=== PATIENT | female | born 1990 | race African-American/Black ===

== ENCOUNTER 2019-03-04 14:06 | Emergency (ER) | payer MEDICAID ==
[~2019-03-04] VITALS: Ht 167.6 cm; Wt 66.0 kg
[2019-03-04 14:34] VITALS: BP 115/79
== END 2019-03-04 17:09 | disposition home or self-care (01) ==
LOC: ER 14:06
DX: J02.9 Acute pharyngitis, unspecified (principal); R03.0 Elevated blood-pressure reading, without diagnosis of hypertension
CPT/HCPCS: 81025; 99283

== ENCOUNTER 2019-09-01 17:02 | Emergency (ER) | payer MEDICAID ==
[~2019-09-01] VITALS: Ht 167.6 cm; Wt 71.0 kg
[2019-09-01 19:14] VITALS: BP 115/88
== END 2019-09-01 19:16 | disposition home or self-care (01) ==
LOC: ER 17:32
DX: J02.0 Streptococcal pharyngitis (principal)
CPT/HCPCS: 87804; 99283

== ENCOUNTER 2020-12-10 16:28 | Emergency (ER) | payer MEDICAID ==
[~2020-12-10] VITALS: Ht 167.6 cm; Wt 73.0 kg
[2020-12-10 19:50] LABS: CLARITY URINE TURBID (CLEAR); COLOR URINE RED (YELLOW); KETONES URINE TRACE (NEGATIVE); LEUKOCYTE ESTERASE URINE 2+ (NEGATIVE); NITRITE URINE POSITIVE (NEGATIVE); OCCULT BLOOD URINE 2+ (NEGATIVE); PROTEIN URINE 2+ (NEGATIVE); SPECIFIC GRAVITY URINE 1.016 (1.005-1.030); UROBILINOGEN URINE 0.2 E.U./dL (0.2-1.0)
[2020-12-10] MEDS ORDERED: CEPH500C2 MT (21:36)
[2020-12-10 21:44] VITALS: BP 141/88
== END 2020-12-10 21:49 | disposition home or self-care (01) ==
LOC: ER 16:28
DX: R58 Hemorrhage, not elsewhere classified (principal); N39.0 Urinary tract infection, site not specified
CPT/HCPCS: 36415; 76830; 76856; 81003; 84702; 86850; 86900; 87491; 87591; 99284

== ENCOUNTER 2020-12-19 04:02 | Emergency (ER) | payer MEDICAID, OTHER ==
[~2020-12-19] VITALS: Ht 167.6 cm; Wt 71.0 kg
[~2020-12-19 04:02] MED LIST: CEPH500C2 MT
[2020-12-19 05:16] LABS: BASOPHILS % 0.3 % (0.0-2.0); EOSINOPHILS % 0.6 % (0.0-5.0); HEMATOCRIT. 38.8 % (36.0-48.0); LYMPHOCYTES % 27.7 % (20.0-50.0); MEAN CORPUSCULAR HEMOGLOBIN 30.4 pg (28.0-32.0); MEAN CORPUSCULAR VOLUME 90.8 fL (81.0-99.0); MEAN PLATELET VOLUME 8.8 fl (7.4-10.4); MONOCYTES % 9.1 % (2.0-8.0); NEUTROPHILS % 62.3 % (40.0-76.0); PLATELET 275 x1000/uL (130-400); RED BLOOD CELL COUNT 4.27 mill/uL (4.2-5.4); RED CELL DISTRIBUTION WIDTH 12.6 % (11.6-14.6)
[2020-12-19 05:23] LABS: CHLORIDE 101 mEq/L (98-107)
[2020-12-19] MEDS ORDERED: IBUP-2028 MT (07:23)
[2020-12-19] MEDS ORDERED: POTASSIUM CHLORIDE 20MEQ TABLET SR PO ONE (07:30)
[2020-12-19 07:48] VITALS: BP 118/68
== END 2020-12-19 07:57 | disposition home or self-care (01) ==
LOC: ER 04:02
DX: R07.89 Other chest pain (principal); E87.6 Hypokalemia
CPT/HCPCS: 36415; 71045; 80053; 83880; 84484; 85025; 93005; 99285

== ENCOUNTER 2021-02-05 13:55 | Emergency (ER) | payer MEDICAID, OTHER ==
[~2021-02-05] VITALS: Ht 167.6 cm; Wt 72.0 kg
[~2021-02-05 13:55] MED LIST changes: +IBUP-2028 MT
[2021-02-05 16:38] LABS: CLARITY URINE CLEAR (CLEAR); COLOR URINE YELLOW (YELLOW); KETONES URINE NEGATIVE (NEGATIVE); LEUKOCYTE ESTERASE URINE NEGATIVE (NEGATIVE); NITRITE URINE NEGATIVE (NEGATIVE); OCCULT BLOOD URINE NEGATIVE (NEGATIVE); PROTEIN URINE NEGATIVE (NEGATIVE); SPECIFIC GRAVITY URINE 1.005 (1.005-1.030); UROBILINOGEN URINE 0.2 E.U./dL (0.2-1.0)
[2021-02-05 16:47] LABS: BASOPHILS % 0.6 % (0.0-2.0); HEMATOCRIT. 37.5 % (36.0-48.0); HEMOGLOBIN. 13.1 g/dL (12.0-16.0); LYMPHOCYTES % 32.3 % (20.0-50.0); MEAN CORPUSCULAR HEMOGLOBIN 31.5 pg (28.0-32.0); MEAN CORPUSCULAR VOLUME 89.9 fL (81.0-99.0); MEAN PLATELET VOLUME 8.9 fl (7.4-10.4); NEUTROPHILS % 59.1 % (40.0-76.0); PLATELET 268 x1000/uL (130-400); RED BLOOD CELL COUNT 4.17 mill/uL (4.2-5.4); RED CELL DISTRIBUTION WIDTH 12.7 % (11.6-14.6)
[2021-02-05 16:51] LABS: CHLORIDE 106 mEq/L (98-107)
[2021-02-05 16:55] LABS: HCG SCREEN NEGATIVE; PROTHROMBIN TIME 10.3 sec (9.6-11.0)
[2021-02-05] MEDS ORDERED: KETOROLAC 60MG/2ML VIAL IM ONE (18:00)
[2021-02-05] MEDS ORDERED: IBUP-2029 MT (18:34)
[2021-02-05] MEDS ORDERED: OMEP20CA14 MT (18:34)
[2021-02-05 18:39] VITALS: BP 124/78
== END 2021-02-05 18:46 | disposition home or self-care (01) ==
LOC: ER 13:55
DX: R10.2 Pelvic and perineal pain (principal); D25.9 Leiomyoma of uterus, unspecified
CPT/HCPCS: 36415; 74176; 80053; 81003; 81025; 83690; 84703; 85025; 85610; 96372; 99284; J1885

== ENCOUNTER 2021-02-14 08:18 | Emergency (ER) | payer OTHER ==
[~2021-02-14] VITALS: Ht 167.6 cm; Wt 71.0 kg
[~2021-02-14 08:18] MED LIST changes: +IBUP-2029 MT; +OMEP20CA14 MT
[2021-02-14] MEDS ORDERED: ACETAMINOPHEN 325MG TABLET PO ONE (08:45)
[2021-02-14 10:10] LABS: BASOPHILS % 0.3 % (0.0-2.0); EOSINOPHILS % 0.6 % (0.0-5.0); HEMATOCRIT. 39.8 % (36.0-48.0); HEMOGLOBIN. 13.7 g/dL (12.0-16.0); LYMPHOCYTES % 18.9 % (20.0-50.0); MEAN CORPUSCULAR VOLUME 89.7 fL (81.0-99.0); MEAN PLATELET VOLUME 9.1 fl (7.4-10.4); MONOCYTES % 10.2 % (2.0-8.0); PLATELET 247 x1000/uL (130-400); RED BLOOD CELL COUNT 4.43 mill/uL (4.2-5.4); RED CELL DISTRIBUTION WIDTH 12.6 % (11.6-14.6)
[2021-02-14 10:20] LABS: CHLORIDE 102 mEq/L (98-107)
[2021-02-14] MEDS ORDERED: IBUP-2028 MT (11:12)
[2021-02-14 11:27] VITALS: BP 124/83
[2021-02-20] MEDS ORDERED: LEVO500T89 MT (13:47)
[2021-02-20] MEDS ORDERED: METR500T MT (13:47)
== END 2021-02-14 11:30 | disposition home or self-care (01) ==
LOC: ER 08:18
DX: R07.89 Other chest pain (principal); F17.200 Nicotine dependence, unspecified, uncomplicated
CPT/HCPCS: 36415; 71045; 80053; 81025; 85025; 85379; 93005; 93970; 99285

== ENCOUNTER 2021-02-17 01:03 | Emergency (ER) | payer OTHER ==
[~2021-02-17] VITALS: Ht 167.6 cm; Wt 71.0 kg
[2021-02-17] MEDS ORDERED: ONDANSETRON HCL 4MG/2ML INJ IV STA (04:19)
[2021-02-17] MEDS ORDERED: KETOROLAC 30MG/ML VIAL IV STA (04:19)
[2021-02-17 05:45] LABS: BASOPHILS % 0.3 % (0.0-2.0); EOSINOPHILS % 0.6 % (0.0-5.0); HEMOGLOBIN. 13.8 g/dL (12.0-16.0); LYMPHOCYTES % 24.8 % (20.0-50.0); MEAN CORPUSCULAR HEMOGLOBIN 30.4 pg (28.0-32.0); MEAN CORPUSCULAR VOLUME 92.2 fL (81.0-99.0); MEAN PLATELET VOLUME 9.5 fl (7.4-10.4); MONOCYTES % 9.7 % (2.0-8.0); NEUTROPHILS % 64.6 % (40.0-76.0); PLATELET 246 x1000/uL (130-400); RED BLOOD CELL COUNT 4.55 mill/uL (4.2-5.4); RED CELL DISTRIBUTION WIDTH 12.4 % (11.6-14.6)
[2021-02-17 05:54] LABS: CHLORIDE 100 mEq/L (98-107)
[2021-02-17] MEDS ORDERED: IBUP-2029 MT (06:13)
[2021-02-17 06:22] VITALS: BP 103/73
[2021-02-20] MEDS ORDERED: METR500T MT (13:47)
[2021-02-20] MEDS ORDERED: LEVO500T89 MT (13:47)
== END 2021-02-17 06:24 | disposition home or self-care (01) ==
LOC: ER 04:16
DX: N80.1 Endometriosis of ovary (principal); R03.0 Elevated blood-pressure reading, without diagnosis of hypertension
CPT/HCPCS: 36415; 76830; 76856; 80053; 81025; 83690; 85025; 96374; 96375; 99284; J1885; J2405

== ENCOUNTER 2021-02-25 14:38 | Emergency (ER) | payer OTHER ==
[~2021-02-25] VITALS: Ht 167.6 cm; Wt 71.0 kg
[~2021-02-25 14:38] MED LIST changes: -CEPH500C2 MT; +LEVO500T89 MT; +METR500T MT
[2021-02-25] MEDS ORDERED: SODIUM CHLORIDE 0.9% 1,000 ML IV ONE (16:30)
[2021-02-25 16:59] LABS: BASOPHILS % 0.7 % (0.0-2.0); EOSINOPHILS % 0.9 % (0.0-5.0); HEMATOCRIT. 36.6 % (36.0-48.0); HEMOGLOBIN. 12.7 g/dL (12.0-16.0); LYMPHOCYTES % 28.8 % (20.0-50.0); MEAN CORPUSCULAR HEMOGLOBIN 30.8 pg (28.0-32.0); MEAN CORPUSCULAR VOLUME 88.8 fL (81.0-99.0); MEAN PLATELET VOLUME 8.9 fl (7.4-10.4); MONOCYTES % 9.3 % (2.0-8.0); NEUTROPHILS % 60.3 % (40.0-76.0); PLATELET 385 x1000/uL (130-400); RED BLOOD CELL COUNT 4.12 mill/uL (4.2-5.4); RED CELL DISTRIBUTION WIDTH 12.6 % (11.6-14.6)
[2021-02-25 17:04] LABS: CHLORIDE 105 mEq/L (98-107)
[2021-02-25 17:07] LABS: INR 1.1; PROTHROMBIN TIME 11.6 sec (9.6-11.0)
[2021-02-25 17:33] LABS: CLARITY URINE CLEAR (CLEAR); COLOR URINE ORANGE (YELLOW); KETONES URINE TRACE (NEGATIVE); LEUKOCYTE ESTERASE URINE TRACE (NEGATIVE); NITRITE URINE NEGATIVE (NEGATIVE); OCCULT BLOOD URINE 3+ (NEGATIVE); PH URINE 6.5 (4.5-8.0); PROTEIN URINE NEGATIVE (NEGATIVE); SPECIFIC GRAVITY URINE 1.006 (1.005-1.030); UROBILINOGEN URINE 0.2 E.U./dL (0.2-1.0)
[2021-02-25 17:44] LABS: HCG SCREEN NEGATIVE
[2021-02-25 20:37] VITALS: BP 121/73
== END 2021-02-25 20:38 | disposition home or self-care (01) ==
LOC: ER 14:38
DX: K57.92 Diverticulitis of intestine, part unspecified, without perforation or abscess without bleeding (principal); F12.10 Cannabis abuse, uncomplicated; Z79.899 Other long term (current) drug therapy
CPT/HCPCS: 36415; 80053; 81003; 81025; 83690; 84703; 85025; 85610; 99283; J7030; Z7610

== ENCOUNTER 2021-04-03 23:18 | Emergency (ER) | payer MEDICAID, OTHER ==
[~2021-04-03] VITALS: Ht 167.6 cm; Wt 66.0 kg
[~2021-04-03 23:18] MED LIST changes: +NITR-87 MT; +TRAM50TA3 MT
[2021-04-03 23:35] VITALS: BP 121/87
== END 2021-04-04 02:42 | disposition home or self-care (01) ==
LOC: ER 23:18
DX: R07.89 Other chest pain (principal); F12.10 Cannabis abuse, uncomplicated; Z79.899 Other long term (current) drug therapy; Z20.822 Contact with and (suspected) exposure to COVID-19
CPT/HCPCS: 71045; 81025; 87426; 93005; 99285

== ENCOUNTER 2021-04-10 18:09 | Emergency (ER) | payer MEDICAID ==
[~2021-04-10] VITALS: Ht 167.6 cm; Wt 66.0 kg
[2021-04-10 22:26] LABS: HEMOGLOBIN. 14.7 g/dL (12.0-16.0); MEAN CORPUSCULAR HEMOGLOBIN 31.4 pg (28.0-32.0); MEAN CORPUSCULAR VOLUME 91.8 fL (81.0-99.0); MEAN PLATELET VOLUME 9.1 fl (7.4-10.4); PLATELET 223 x1000/uL (130-400); RED BLOOD CELL COUNT 4.68 mill/uL (4.2-5.4); RED CELL DISTRIBUTION WIDTH 15.8 % (11.6-14.6)
[2021-04-10 22:35] LABS: CHLORIDE 103 mEq/L (98-107)
[2021-04-10 22:42] LABS: *AMPHETAMINES SCREEN URINE NEGATIVE (NEGATIVE); *BARBITURATES SCREEN URINE NEGATIVE (NEGATIVE); *BENZODIAZEPINES SCREEN URINE NEGATIVE (NEGATIVE); *COCAINE SCREEN URINE NEGATIVE (NEGATIVE); METHADONE URINE SCREEN NEGATIVE (NEGATIVE); OPIATES URINE SCREEN NEGATIVE (NEGATIVE); PHENCYCLIDINE URINE SCREEN NEGATIVE (NEGATIVE)
[2021-04-10 22:43] LABS: CANNABINOID URINE SCREEN NEGATIVE (NEGATIVE)
[2021-04-10 22:45] LABS: HCG SCREEN NEGATIVE
[2021-04-10 23:02] LABS: PLATELET ESTIMATE NORMAL
[2021-04-11 00:17] VITALS: BP 118/84
== END 2021-04-11 00:19 | disposition home or self-care (01) ==
LOC: ER 18:09
DX: R00.2 Palpitations (principal); F12.10 Cannabis abuse, uncomplicated; Z79.899 Other long term (current) drug therapy
CPT/HCPCS: 36415; 71045; 80053; 80305; 84443; 84703; 85025; 93005; 99285

== ENCOUNTER 2021-06-01 20:37 | Emergency (ER) | payer MEDICAID, OTHER ==
[~2021-06-01] VITALS: Ht 170.2 cm; Wt 66.0 kg
[2021-06-01 22:52] VITALS: BP 128/68
== END 2021-06-01 22:52 | disposition home or self-care (01) ==
LOC: ER 20:37
DX: R07.89 Other chest pain (principal); F12.10 Cannabis abuse, uncomplicated; Z79.899 Other long term (current) drug therapy
CPT/HCPCS: 93005; 99283

== ENCOUNTER 2021-12-30 19:02 | Emergency (ER) | payer MEDICAID, OTHER ==
[~2021-12-30] VITALS: Ht 167.6 cm; Wt 68.0 kg
[2021-12-30] MEDS ORDERED: VISCOUS LIDOCAINE 2% 15 ML UDC PO STA (20:34)
[2021-12-31 00:43] VITALS: BP 127/83
== END 2021-12-31 00:48 | disposition home or self-care (01) ==
LOC: ER 19:02
DX: J02.9 Acute pharyngitis, unspecified (principal); F12.10 Cannabis abuse, uncomplicated; Z98.890 Other specified postprocedural states; Z20.822 Contact with and (suspected) exposure to COVID-19
CPT/HCPCS: 87070; 87426; 87430; 99283

== ENCOUNTER 2022-03-28 23:54 | Emergency (ER) | payer MEDICAID, OTHER ==
[~2022-03-28] VITALS: Ht 170.2 cm; Wt 69.3 kg
[~2022-03-28 23:54] MED LIST changes: -LEVO500T89 MT; +LEVO500T90 MT
[2022-03-29 00:26] VITALS: BP 133/95
[2022-03-29] MEDS ORDERED: ALBU6.7H15 INH (01:26)
[2022-03-29] MEDS ORDERED: P50 MT (01:26)
== END 2022-03-29 01:43 | disposition home or self-care (01) ==
LOC: ER 23:54
DX: J40 Bronchitis, not specified as acute or chronic (principal); F12.10 Cannabis abuse, uncomplicated; Z79.899 Other long term (current) drug therapy
CPT/HCPCS: 93005; 99283; Z7610

== ENCOUNTER 2022-05-05 22:52 | Emergency (ER) | payer MEDICAID, OTHER ==
[~2022-05-05] VITALS: Ht 167.6 cm; Wt 67.2 kg
[~2022-05-05 22:52] MED LIST changes: +ALBU6.7H15 INH; +P50 MT
[2022-05-05 23:27] VITALS: BP 139/82
== END 2022-05-06 03:00 | disposition left against medical advice (07) ==
LOC: ER 22:52
DX: Z53.21 Procedure and treatment not carried out due to patient leaving prior to being seen by health care provider (principal)

== ENCOUNTER 2022-06-10 16:30 | Emergency (ER) | payer MEDICAID ==
[~2022-06-10] VITALS: Ht 167.6 cm; Wt 68.0 kg
[~2022-06-10 16:30] MED LIST changes: +LEVO-65 MT; -LEVO500T90 MT
[2022-06-10] MEDS ORDERED: KETOROLAC 30MG/ML VIAL IV STA (19:52)
[2022-06-10] MEDS ORDERED: ONDANSETRON HCL 4MG/2ML INJ IV ONE (20:00)
[2022-06-10] MEDS ORDERED: SODIUM CHLORIDE 0.9% 1,000 ML IV ONE (20:00)
[2022-06-10 20:19] LABS: HEMATOCRIT. 36.9 % (36.0-48.0); HEMOGLOBIN. 12.6 g/dL (12.0-16.0); MEAN CORPUSCULAR HEMOGLOBIN 31.7 pg (28.0-32.0); MEAN CORPUSCULAR VOLUME 92.6 fL (81.0-99.0); MEAN PLATELET VOLUME 8.5 fl (7.4-10.4); PLATELET 232 x1000/uL (130-400); RED BLOOD CELL COUNT 3.98 mill/uL (4.2-5.4); RED CELL DISTRIBUTION WIDTH 12.7 % (11.6-14.6)
[2022-06-10 20:26] LABS: CHLORIDE 101 mEq/L (98-107)
[2022-06-10 20:32] LABS: HCG SCREEN NEGATIVE
[2022-06-10 20:58] LABS: PLATELET ESTIMATE NORMAL
[2022-06-10 22:09] LABS: CLARITY URINE TURBID (CLEAR); COLOR URINE ORANGE (YELLOW); KETONES URINE 2+ (NEGATIVE); LEUKOCYTE ESTERASE URINE 2+ (NEGATIVE); NITRITE URINE POSITIVE (NEGATIVE); OCCULT BLOOD URINE 3+ (NEGATIVE); PROTEIN URINE 2+ (NEGATIVE); SPECIFIC GRAVITY URINE 1.033 (1.005-1.030)
[2022-06-10] MEDS ORDERED: KETOROLAC 15MG/ML VIAL IV ONE (23:00)
[2022-06-10] MEDS ORDERED: NITR-87 MT (23:01)
[2022-06-10] MEDS ORDERED: IBUP-2028 MT (23:01)
[2022-06-10 23:05] VITALS: BP 123/81
== END 2022-06-10 23:25 | disposition home or self-care (01) ==
LOC: ER 16:30
DX: N39.0 Urinary tract infection, site not specified (principal); N83.202 Unspecified ovarian cyst, left side; D25.9 Leiomyoma of uterus, unspecified
CPT/HCPCS: 36415; 74176; 76830; 76856; 80053; 81003; 81025; 83690; 84703; 85025; 96361; 96374; 96375; 99284; J1885; J2405; J7030